=== PATIENT | female | born 1995 | race Caucasian/White ===

== ENCOUNTER 2019-09-11 08:39 | Emergency (ER) | payer OTHER, SELFPAY ==
[2019-09-11 08:41] VITALS: BP 139/84; PULSE 105; RESP 18; TEMP 37; O2SAT 98; BMI 20.2
--- NOTE | 2019-09-11 08:50 | RAD_ITS ---
STUDY: X-RAY CHEST REASON FOR EXAM: Female, 24 years old. FLU X 2 DAYS, COUGH, PAIN TECHNIQUE: PA and lateral views of the chest. COMPARISON: Comparison is made with prior study dated December 16, 2014. FINDINGS: Hyperinflation. The lungs are clear. There is no demonstrated pleural abnormality. Normal size heart. Normal mediastinum and ty. Normal visualized pulmonary arteries. Normal visualized aortic arch and descending thoracic aorta. Normal visualized thoracic spine. Normal visualized ribs, clavicles, and shoulders. There is no demonstrated abnormality of the visualized soft tissue structures of the upper abdomen. RAD/Chest PA and Lateral IMPRESSION: Hyperinflation. Electronically Signed: Pramod Davila, at 10:32 EST , Service support ,
--- NOTE | 2019-09-11 09:10 | ED.DCSUM_ITS ---
- ER Visit Summary Date of Service: 09/11/19 Chief Complaint: [Fever] History of Present Illness: The patient is a 24 F [presents to the emergency department complaint of a fever that started 4 5 days ago. Patient complains of cough and body aches. Patient was seen at urgent care 3 days ago diagnosed with influenza. Patient was started on an inhaler and Tessalon Perles. Patient complains of nausea and decreased p.o. intake. Her cough is mostly nonproductive. She denies any abdominal pain. She has no medical history.] Patient complains of body aches. She complains of a mild headache. She denies any neck pain. Physical Examination: [HEENT-PERRLA, EOMI. Cranial nerves II through XII grossly intact. TMs clear. Mucous membranes moist. No adenopathy. Cardiovascular-regular rate and rhythm without murmur or ectopy Lungs-clear to auscultation, chest wall stable without crepitus or subcu emphysema Abdomen-normoactive bowel sounds, soft, nontender, no rebound or rigidity, no peritoneal signs. Extremities-intact ?4, normal range of motion, normal pulses, atraumatic] Test Results: [CBC with differential obtained showed a depressed white blood cell count 3.1, hemoglobin 13, hematocrit 39, platelets 117. Chemistries were unremarkable. Chest x-ray showed nothing acute.] Emergency Department Course and Treatment: [She was given a liter normal same fluid bolus. Patient given Toradol 30 mg IV. Patient given Zofran 4 mg IV. Patient felt improved.] Treatment Plan: [Continue with her current meds and I will write her prescription for Zofran. To follow-up with her primary care physician 3 to 5 days.] Disposition: [Discharged home in stable condition. Advised to return if increasing shortness of breath or condition should worsen anyway.] Impression: [Influenza] This note was generated with [employer] dictation software. It may contain incorrect words, spelling, and punctuation that were not noted in review of the chart p rior to signing ED Disposition - Plan for ED Patient: Referrals: Brandy Plascencia DO [Primary Care Provider] -
[2019-09-11 09:16] LABS: Absolute Lymphocyte Count 1.28 X10^3/uL (0.83-4.51); Absolute Neutrophil Count 1.5 X10^3/uL (2.0-7.7); Basophil# 0.01 X10^3/uL; Basophil% 0.3 % (0-1); Hematocrit 39.3 % (37-47); Hemoglobin 13.1 g/dL (12.0-15.0); Lymphocyte # 1.28 X10^3/ul (4.0); Mean Corp Hgb Conc 33.3 g/dL (32-36); Mean Corpuscular Volume 89.9 fL (81-99); Mean Platelet Vol. 9.7 fl (6.2-12.0); Monocyte# 0.33 X10^3/uL; Monocyte% 10.6 % (0-10); NRBC Flagged by Analyzer 0 % (0-5); Neutrophil # 1.49 X10^3/uL (2.7-7.7); Neutrophil % 47.8 % (47-70); POSITIVE MORPHOLOGY YES; Platelet Count 117 K/mm3 (150-450); RBC Distribution Width CV 12.3 % (11.6-14.6); Red Blood Count 4.37 M/mm3 (4.2-5.4); White Blood Count 3.1 K/mm3 (4.4-11.0)
[2019-09-11] MEDS: Ondansetron 4 MG/2 ML Vial IV (09:23)
[2019-09-11] MEDS: Ketorolac 30 MG/ML Syringe IV (09:23)
[2019-09-11] MEDS: 0.9% Normal Saline 1,000 ML 1000 ML IV (09:23)
[2019-09-11 09:24] LABS: Differential Indicated SCAN CRITERIA MET
[2019-09-11 09:30] LABS: Anion Gap 7 (5-15); BUN 10 mg/dL (7-18); BUN/Creat Ratio 14.5 RATIO (10-20); Calcium,Total 9.2 mg/dL (8.5-10.1); Chloride 110 mmol/L (98-107); Creatinine, Serum 0.69 mg/dL (0.55-1.02); EST Glomerular Filtration Rate 111 mL/min (>60); Est Glom Filt Rate - Afr Amer 134 mL/min (>60); Estimated Creatinine Clearance 107.14 ml/min; Glucose 104 mg/dL (74-106); Potassium 3.8 mmol/L (3.5-5.1); Sodium Level 140 mmol/L (136-145)
[2019-09-11 10:07] LABS: Reactive Lymphocyte 1+
--- NOTE | 2019-09-11 10:08 | ED.DEP ---
ED Disposition - Plan for ED Patient: Instructions: INFLUENZA (Adult) Prescriptions: Ondansetron [Zofran Odt] 4 mg PO Q8H PRN PRN #10 tab PRN Reason: Nausea Prescription Printed Referrals: Brandy Plascencia DO [Primary Care Provider] - 3-5 Days
[2019-09-11 10:58] VITALS: BP 103/55; PULSE 76; RESP 16; TEMP 37.2; O2SAT 99
== END 2019-09-11 11:08 | disposition home or self-care (01) ==
LOC: ED 08:56
PROVIDERS: Emergency Provider Emergency Medicine; Family Provider Family Medicine; PCP Family Medicine
DX: J11.1 Influenza due to unidentified influenza virus with other respiratory manifestations (principal); Z72.0 Tobacco use
CPT/HCPCS: 71046; 80048; 85025; 96361; 96374; 96375; 99283; J7030; A4216; J2405

== ENCOUNTER 2019-09-18 20:27 | Inpatient (IN) | payer OTHER, SELFPAY ==
[2019-09-18 20:27] VITALS: BP 119/61; PULSE 121; RESP 18; TEMP 37.1; O2SAT 96; BMI 19.0
[2019-09-18] MEDS: Ketorolac 30 MG/ML Syringe IV (21:47)
[2019-09-18] MEDS: 0.9% Normal Saline 1,000 ML 1000 ML IV (21:48)
[2019-09-18 21:53] LABS: Absolute Lymphocyte Count 1.67 X10^3/uL (0.83-4.51); Absolute Neutrophil Count 18.4 X10^3/uL (2.0-7.7); Basophil# 0.03 X10^3/uL; Basophil% 0.1 % (0-1); Eosinophil# 0.01 X10^3/uL; Hematocrit 39.2 % (37-47); Hemoglobin 13.2 g/dL (12.0-15.0); Lymphocyte # 1.67 X10^3/ul (4.0); Lymphocyte % 7.4 % (19-41); Mean Corp Hgb Conc 33.7 g/dL (32-36); Mean Corpuscular Hgb 30.3 pg (27.0-32.0); Mean Corpuscular Volume 89.9 fL (81-99); Mean Platelet Vol. 9.6 fl (6.2-12.0); Monocyte# 2.38 X10^3/uL; Monocyte% 10.5 % (0-10); NRBC Flagged by Analyzer 0 % (0-5); Neutrophil # 18.43 X10^3/uL (2.7-7.7); Neutrophil % 81.2 % (47-70); POSITIVE DIFFERENTIAL YES; Platelet Count 235 K/mm3 (150-450); RBC Distribution Width CV 11.9 % (11.6-14.6); RBC Distribution Width SD 39.2 fl (35.1-43.9); Red Blood Count 4.36 M/mm3 (4.2-5.4); White Blood Count 22.7 K/mm3 (4.4-11.0)
--- NOTE | 2019-09-18 22:00 | RAD_ITS ---
STUDY: X-RAY CHEST REASON FOR EXAM: Female, 24 years old. COUGH WITH FEVER TECHNIQUE: PA and lateral views of the chest. COMPARISON: September 11, 2019 FINDINGS: There is a new left basilar opacity. Normal size heart. Normal mediastinum and ty. Normal visualized pulmonary arteries. Normal visualized aortic arch and descending thoracic aorta. Normal visualized thoracic spine. Normal visualized ribs, clavicles, and shoulders. There is no demonstrated abnormality of the visualized soft tissue structures of the upper abdomen. RAD/Chest PA and Lateral IMPRESSION: New left basilar opacity consistent with underlying pneumonia, involving the lingula and possibly the left lower lobe. Electronically Signed: Judie Dyer MD at 22:15 EST Tel , Service support ,
[2019-09-18 22:12] LABS: Anion Gap 7 (5-15); BUN 15 mg/dL (7-18); Calcium,Total 9.4 mg/dL (8.5-10.1); Chloride 109 mmol/L (98-107); Creatinine, Serum 0.79 mg/dL (0.55-1.02); EST Glomerular Filtration Rate 96 mL/min (>60); Est Glom Filt Rate - Afr Amer 116 mL/min (>60); Estimated Creatinine Clearance 87.71 ml/min; Glucose 103 mg/dL (74-106); Sodium Level 139 mmol/L (136-145)
[2019-09-18 22:16] LABS: Lactic Acid 1.2 mmol/L (0.4-1.9)
[2019-09-18 22:18] LABS: Differential Indicated SCAN CRITERIA MET
[2019-09-18 22:19] LABS: Differential Comment SCANNED
--- NOTE | 2019-09-18 22:40 | ED.VISSUMM ---
- ER Visit Summary Date of Service: 09/18/19 Chief Complaint: [Fever and cough] History of Present Illness: The patient is a 24 F [presents to the emergency department complaint of illness that started more than 10 days ago. Patient was diagnosed with influenza on September 09. Patient states that she improved symptom bonner for a time but today developed fever again as well as body aches and worsening cough. Patient bringing up some green-yellow sputum. She denies any chest pain. Patient has no medical history. Patient has no prior surgical history. Patient allergic to penicillin and sulfa.] Physical Examination: [HEENT-PERRLA, EOMI. Cranial nerves II through XII grossly intact. TMs clear. Mucous membranes moist. No adenopathy. Cardiovascular-regular and tachycardic with heart rate in the 120s. No murmurs auscultated. Lungs-good aeration bilaterally. Patient has some rhonchi and few rales noted in the left base. No significant tachypnea. No accessory muscle use or retractions. Abdomen-normoactive bowel sounds, soft, nontender, no rebound or rigidity, no peritoneal signs. Extremities-intact ?4, normal range of motion, normal pulses, atraumatic] Test Results: [CBC with differential obtained showed an elevated white count of 22.7, hemoglobin 13, hematocrit 39, placed 235. Chemistries unremarkable. Lactate was 1.2. Chest x-ray obtained showed a left lower lobe pneumonia as well as a lingular pneumonia] Emergency Department Course and Treatment: [Patient had blood cultures ordered and was started on Levaquin 750 mg IV.] Treatment Plan: [Plan will be to admit for IV antibiotics.] Disposition: [Admit] Impression: [Post influenza pneumonia Sepsis] This note was generated with [employer] dictation software. It may contain incorrect words, spelling, and punctuation that were not noted in review of the chart prior to signing ED Disposition - Plan for ED Patient: Referrals: Brandy Plascencia DO [Primary Care Provider] -
[2019-09-18] MEDS: levoFLOXacin IV 750 MG/150 ML BAG 100 MG IV (22:45)
--- NOTE | 2019-09-18 23:10 | PCM.HP.STD ---
Problem List (1) Sepsis Status: Acute History of Present Illness Date of Admission: 09/18/19 Chief Complaint: General body ache The patient is a 24 year old F who presented with general body ache. Patient was diagnosed with influenza on 09/09/2019 at a urgent care. She was not given any Tamiflu at that time probably because his symptoms has been going on several days before presentation. She was at emergency department on 09/11/2019 where a chest x-ray was unremarkable and patient was discharged home. Reportedly patient got better but on the day of his presentation she had general body ache for which reason she took Advil. Her temperature at home was 100.1 Fahrenheit. Associated for symptoms is cough productive for sputum. She is unable to tell the color of her sputum because she does not look at it. Further she has chills; rigors and shortness of breath. She has been using her albuterol inhaler which was prescribed for her when she had influenza. Reportedly the albuterol inhaler helped with her shortness of breath. She reports chest pain. At the emergency department patient had tachycardia and her white count was elevated. A chest x-ray showed new infiltrate in her left lower side. Past Medical History Medical History: Medical History (Last Updated 09/19/19 @ 01:03 by Basilio Steve MD) Denies any past medical history Allergies Penicillins Allergy (Verified 09/11/19 08:44) Rash Sulfa (Sulfonamide Antibiotics) Allergy (Verified 09/11/19 08:44) Rash Home Medications: Ambulatory Orders Medication Instructions Recorded Albuterol Inhaler [Ventolin Hfa] 1 - 2 puff IH Q4H PRN PRN 09/19/19 MedroxyPROGESTERone [Depo-Provera] 150 mg IM .[id number] 09/19/19 Surgical History: no surgical history Lives: With Family Smoking Status: Current every day smoker Alcohol: Occasional - *Family History Maternal History Items: Cancer - Hodgkin's lymphoma, - - Porphyria Paternal History Items: Unknown Review of Systems Constitutional: Reports: Anorexia, Chills, Fever - Low-grade. Denies: Weight Change HEENT: Denies: Head Aches, Sinus Congestion, Sinus Drainage Cardiovascular: Reports: Chest Pain. Denies: Palpitations Respiratory: Reports: Cough, Shortness of Breath, Sputum production Gastrointestinal: Denies: Abdominal Pain, Nausea, Vomiting Genitourinary: Denies: Dysuria Musculoskeletal: Reports: Muscle pain. Denies: Joint Pain, Joint Tenderness Skin: Denies: Rash, Wounds Neurological: Denies: Numbness, Tingling, Focal weakness Psychiatric: Denies: Anxiety, Depression, Homicidal Ideations, Suicidal Ideations Hematologic/ Lymphatic: Denies: Easy Bruising, Easy Bleeding VTE Information - Inpt Only VTE Present on Admission: No VTE Mechan Device Prophylaxis: None VTE Pharm Prophylaxis ordered?: No Reason prophylaxis not ordered:: Treatment Not Indicated - Low risk; encourage to ambulate Patient Problems: Active and Suspected Problems (Last Updated 09/19/19 @ 01:03 by Basilio Steve MD) Sepsis (Acute) - Physical Exam Vitals/I&O's: Vital Signs Temp Pulse Resp BP Pulse Ox 98.8 F 121 H 18 119/61 96 09/18/19 20:27 09/18/19 20:27 09/18/19 20:27 09/18/19 20:27 09/18/19 20:27 Oxygen Delivery Method Room Air Weight: 50.167 kg Body Mass Index (BMI) 19.0 Intake and Output for Last 24 Hours 09/16/19 09/17/19 09/18/19 23:59 23:59 23:59 Intake Total 1000 / 1000 Balance 1000 / 1000 General: Alert, Oriented x3, Cooperative HEENT: Atraumatic, PERRLA, EOMI, Normocephalic Neck: Supple, No JVD, Negative Carotid Bruits Lungs: Clear to auscultation, Normal air movement Cardiovascular: Normal S1, Normal S2, No murmurs, Tachycardic Abdomen: Bowel Sounds Present, Soft, Non Tender Extremities: No edema, Capillary Refill Less than 3 Seconds Skin: No rashes, No breakdown Musculoskeletal: No Tenderness to Palpation of Joints or Extremities Neurological: Cranial nerves II-XII grossly intact Psych/Mental Status: Normal Affect, Appropriate Laboratory Results 09/18/19 21:43: WBC 22.7 H, RBC 4.36, Hgb 13.2, Hct 39.2, MCV 89.9, MCH 30.3, MCHC 33.7, RDW Std Deviation 39.2, RDW Coeff of Leah 11.9, Plt Count 235, MPV 9.6, Immature Gran % (Auto) 0.800, Neut % (Auto) 81.2 H, Lymph % (Auto) 7.4 L, [place] % (Auto) 10.5 H, Eos % (Auto) 0.0, Baso % (Auto) 0.1, Absolute Neuts (auto) 18.4 H, Absolute Lymphs (auto) 1.67, Nucleated RBC % 0, Differential Comment SCANNED, Diff Path Review December foll 09/18/19 21:43: Sodium 139, Potassium 4.0, Chloride 109 H, Carbon Dioxide 23.0, Anion Gap 7, BUN 15, Creatinine 0.79, Estim Creat Clear Calc 87.71, Est GFR (MDRD) Af Amer 116, Est GFR (MDRD) Non-Af 96, BUN/Creatinine Ratio 19.0, Glucose 103, Calcium 9.4 09/18/19 21:43: Lactic Acid 1.2 Current Medications Levofloxacin (Levaquin Iv) 750 mg in 150 mls @ 100 mls/hr IV X1 ONE Stop: 09/18/19 23:57 Last Admin: 09/18/19 22:45 Dose: 100 mls/hr Documented by: Assessment/Plan All Active Problems (Last Updated 09/19/19 @ 01:03 by Basilio Steve MD) Sepsis (Acute) The patient is a 24 year old F who presented with general body ache; productive cough; chills; low-grade fever; rigors; chills and and anorexia was found to have tachypnea and leukocytosis as well as radiographic evidence of infiltrate in the left lower lung consistent with sepsis secondary to post influenza pneumonia. Sepsis secondary to post influenza pneumonia. Patient with heart rate of more than 90. White count of 22.7. Chest x-ray with new left basilar opacity consistent with underlying pneumonia involving the lingula and posterior left lower lobe. Chest x-ray was independently reviewed. I agree cardiology interpretation. Blood Culture x2 was ordered emergency department; follow Lactic acid was unremarkable. Get Legionella antigen and strep pneumonia antigen as well as sputum culture. Check MRSA of the nares. Received Levaquin at the emergency department. Of note patient has allergic to penicillin but she does not remember what happened when she took penicillin. Start patient on ceftriaxone and azithromycin. Scheduled DuoNeb and albuterol as needed. Mucinex ordered. Trend CBC and BMP Tobacco abuse Counseled. DVT Prophylaxis Low risk Encourage to ambulate Code Visit Inpatient E&M: 19129 Init Hosp L3
[2019-09-18 23:33] VITALS: BP 111/66; PULSE 95; RESP 15; RESP 16; TEMP 37.3; O2SAT 99
[2019-09-19] VITALS (13 sets, daily range): BP systolic 104–124; BP diastolic 46–66; PULSE 74–119; RESP 12–18; TEMP 37–37.4; O2SAT 97–100; BMI 19.2
[2019-09-19] MEDS: 0.9% Normal Saline 1,000 ML 75 ML IV (00:45)
[2019-09-19 01:54] LABS: M R Staph aureus DNA By PCR Negative (Negative); Probe Check PASS; Specimen Processing Control PASS
[2019-09-19] MEDS: Ketorolac 15 MG/ML Vial IV (04:43)
[2019-09-19] MEDS: 0.9% Saline Lock 10 ML Syringe IV ×2 (04:44→21:28)
[2019-09-19 06:00] LABS: Absolute Lymphocyte Count 1.81 X10^3/uL (0.83-4.51); Absolute Neutrophil Count 15.8 X10^3/uL (2.0-7.7); Basophil# 0.02 X10^3/uL; Basophil% 0.1 % (0-1); Eosinophil# 0.03 X10^3/uL; Eosinophils% 0.2 % (0-5); Hematocrit 34.8 % (37-47); Hemoglobin 11.6 g/dL (12.0-15.0); Lymphocyte # 1.81 X10^3/ul (4.0); Lymphocyte % 9.3 % (19-41); Mean Corp Hgb Conc 33.3 g/dL (32-36); Mean Corpuscular Hgb 30.5 pg (27.0-32.0); Mean Corpuscular Volume 91.6 fL (81-99); Monocyte# 1.62 X10^3/uL; Monocyte% 8.3 % (0-10); NRBC Flagged by Analyzer 0 % (0-5); Neutrophil # 15.82 X10^3/uL (2.7-7.7); Neutrophil % 81.2 % (47-70); POSITIVE DIFFERENTIAL YES; Platelet Count 232 K/mm3 (150-450); RBC Distribution Width CV 11.9 % (11.6-14.6); RBC Distribution Width SD 39.8 fl (35.1-43.9); White Blood Count 19.5 K/mm3 (4.4-11.0)
[2019-09-19 06:08] LABS: Differential Indicated SCAN CRITERIA MET
[2019-09-19 06:24] LABS: Differential Comment SCANNED
[2019-09-19 06:43] LABS: Anion Gap 7 (5-15); BUN 10 mg/dL (7-18); BUN/Creat Ratio 16.4 RATIO (10-20); Calcium,Total 8.5 mg/dL (8.5-10.1); Chloride 112 mmol/L (98-107); Creatinine, Serum 0.61 mg/dL (0.55-1.02); EST Glomerular Filtration Rate 128 mL/min (>60); Est Glom Filt Rate - Afr Amer 155 mL/min (>60); Estimated Creatinine Clearance 115.03 ml/min; Glucose 97 mg/dL (74-106); Potassium 3.9 mmol/L (3.5-5.1); Sodium Level 140 mmol/L (136-145)
[2019-09-19] MEDS: Ipratropium/Albuterol Sulfate 3 ML AMPUL.NEB INHALATION ×4 (07:40→19:15)
--- NOTE | 2019-09-19 08:46 | NURSING ---
pt aware of need for sputum. cup at bedside. unable to provide at this time
[2019-09-19] MEDS: guaiFENesin 1,200 MG Tablet 1200 MG PO ×2 (08:50→21:39)
--- NOTE | 2019-09-19 10:50 | CASEMGMT ---
RN ABEBA Face to Face with patient for initial transition planning/care coordination assessment. RN CM introduced self and role at [facility]. Patient lying in bed, alert and oriented. Patient willing to participate in assessment and is able to answer all questions appropriately. Care providers, pharmacy, and demographics verified. Patient wishes to discharge home, denies need for home health at this time. Patient states she has no further needs or concerns at this time. CM to follow for discharge planning needs that may arise. PCP: Thais Specialists: none [facility]erred [facility]acy[facility] Insurance: MMO Prescription Benefit: yes Living Will/HPOA: none LNOK: mother Living Arrangements: Patient lives with mother in house. Patient independent at home. Transportation: self/mother DME/HHC: Patient denies DME or HHC. Disposition Plan: Patient to discharge home with family support and follow-up plans in place. Wendy MOSES, RN, CM
--- NOTE | 2019-09-19 13:16 | PCM.PN.HOSP ---
Patient Problems: Active and Suspected Problems (Last Updated 09/19/19 @ 01:03 by Basilio Steve MD) Sepsis (Acute) Reason for Visit: Follow-up on pneumonia Subjective: Patient was seen and examined. She feels very fatigued. Denied any fever and chills. Complains of pain in the left side of the chest. Objective: Physical exam: General: Alert, Oriented x3, Cooperative, looks fatigued HEENT: Atraumatic, PERRLA, EOMI, Normocephalic Neck: Supple, No JVD, Negative Carotid Bruits Lungs: Clear to auscultation, Normal air movement Cardiovascular: Normal S1, Normal S2, No murmurs, Tachycardic Abdomen: Bowel Sounds Present, Soft, Non Tender Extremities: No edema, Capillary Refill Less than 3 Seconds Skin: No rashes, No breakdown Musculoskeletal: No Tenderness to Palpation of Joints or Extremities Neurological: Cranial nerves II-XII grossly intact Psych/Mental Status: Normal Affect, Appropriate Vitals/I&O's: Vital Signs Temp Pulse Resp BP Pulse Ox 99 F 97 18 104/46 L 97 09/19/19 08:45 09/19/19 11:19 09/19/19 11:19 09/19/19 08:45 09/19/19 08:45 Oxygen Delivery Method Room Air Weight: 50.8 kg Body Mass Index (BMI) 19.2 Intake and Output for Last 24 Hours 09/17/19 09/18/19 09/19/19 23:59 23:59 23:59 Intake Total 1000 / 1000 1175.0 / 1175.0 Output Total 450 / 450 Balance 1000 / 1000 725.0 / 725.0 Microbiology Past 72 Hours 09/19/19 11:04 Sputum, Expectorated/Coughed Gram Stain - Final 09/19/19 01:20 Urine, Clean Catch Legionella Antigen - Final 09/19/19 01:20 Urine, Clean Catch Streptococcus pneumoniae Antigen (M - Final Laboratory Results 09/18/19 21:43: WBC 22.7 H, RBC 4.36, Hgb 13.2, Hct 39.2, MCV 89.9, MCH 30.3, MCHC 33.7, RDW Std Deviation 39.2, RDW Coeff of Leah 11.9, Plt Count 235, MPV 9.6, Immature Gran % (Auto) 0.800, Neut % (Auto) 81.2 H, Lymph % (Auto) 7.4 L, [place] % (Auto) 10.5 H, Eos % (Auto) 0.0, Baso % (Auto) 0.1, Absolute Neuts (auto) 18.4 H, Absolute Lymphs (auto) 1.67, Nucleated RBC % 0, Differential Comment SCANNED, Diff Path Review December [facility] 09/18/19 21:43: Sodium 139, Potassium 4.0, Chloride 109 H, Carbon Dioxide 23.0, Anion Gap 7, BUN 15, Creatinine 0.79, Estim Creat Clear Calc 87.71, Est GFR (MDRD) Af Amer 116, Est GFR (MDRD) Non-Af 96, BUN/Creatinine Ratio 19.0, Glucose 103, Calcium 9.4 09/18/19 21:43: Lactic Acid 1.2 09/19/19 00:25: MRSA (PCR) Negative 09/19/19 05:40: WBC 19.5 H, RBC 3.80 L, Hgb 11.6 L, Hct 34.8 L, MCV 91.6, MCH 30.5, MCHC 33.3, RDW Std Deviation 39.8, RDW Coeff of Leah 11.9, Plt Count 232, MPV 10.0, Immature Gran % (Auto) 0.900, Neut % (Auto) 81.2 H, Lymph % (Auto) 9.3 L, [place] % (Auto) 8.3, Eos % (Auto) 0.2, Baso % (Auto) 0.1, Absolute Neuts (auto) 15.8 H, Absolute Lymphs (auto) 1.81, Nucleated RBC % 0, Differential Comment SCANNED, Diff Path Review December [facility] 09/19/19 05:40: Sodium 140, Potassium 3.9, Chloride 112 H, Carbon Dioxide 21.0, Anion Gap 7, BUN 10, Creatinine 0.61, Estim Creat Clear Calc 115.03, Est GFR (MDRD) Af Amer 155, Est GFR (MDRD) Non-Af 128, BUN/Creatinine Ratio 16.4, Glucose 97, Calcium 8.5 Current Medications Acetaminophen (Tylenol) 650 mg PO Q6H PRN PRN PRN Reason: Pain Score 1-10/Temp > 100.7 F Albuterol Sulfate (Ventolin Aerosols) 2.5 mg INHALATION Q2H PRN PRN PRN Reason: Shortness of Breath/Wheezing Albuterol/Ipratropium (Duoneb) 3 ml INHALATION Q4HWA.RT [facility] Last Admin: 09/19/19 11:19 Dose: 3 ml Documented by: Benzonatate (Tessalon Perle) 100 mg PO TID PRN PRN PRN Reason: COUGH Glucagon () 1 mg IM .X1 PRN PRN Reason: Hypoglycemia Guaifenesin (Mucinex) 1,200 mg PO BID [facility] Last Admin: 09/19/19 08:50 Dose: 1,200 mg Documented by: Sodium Chloride () 1,000 mls @ 75 mls/hr IV .[id number] [facility] Stop: 09/19/19 13:29 Last Infusion: 09/19/19 02:34 Dose: 75 mls/hr Documented by: Ceftriaxone Sodium 2 gm/ (Sodium Chloride) 50 mls @ 100 mls/hr IV QHS [facility] Last Infusion: 09/19/19 01:17 Dose: Infused Documented by: Azithromycin 500 mg/ Dextrose 255 mls @ 250 mls/hr IV QHS [facility] Last Infusion: 09/19/19 02:34 Dose: Infused Documented by: Dextrose (Dextrose 10%-Water) 250 mls @ 999 mls/hr IV .Q16M PRN; Protocol PRN Reason: HYPOGLYCEMIA Sodium Chloride () 250 mls @ 15 mls/hr IV .[id number] PRN PRN Reason: Saline Flush Ketorolac Tromethamine (Toradol) 15 mg IV Q6H PRN PRN PRN Reason: pain 6-10 Stop: 09/24/19 03:01 Last Admin: 09/19/19 04:43 Dose: 15 mg Documented by: Nutritional Formula (Lactose Free) (Ensure Enlive) 120 ml PO 4X/DAY [facility] Last Admin: 09/19/19 08:53 Dose: 120 ml Documented by: Ondansetron HCl (Zofran) 4 mg IV Q8H PRN PRN PRN Reason: NAUSEA/VOMITING Sodium Chloride () 10 - 40 ml IV UD PRN PRN Reason: SALINE FLUSH Last Admin: 09/19/19 04:44 Dose: 10 ml Documented by: STROKE Vital Signs/Narrative: Vital Signs Pulse Resp 09/19/19 11:19 97 18 09/19/19 10:00 106 H Medical Necessity - Tobacco Use Smoking Status: Current every day smoker Assessment/Plan All Active Problems (Last Updated 09/19/19 @ 01:03 by Basilio Steve MD) Sepsis (Acute) 1. Sepsis secondary to pneumonia, s/p recent influenza, remains minimally improved MRSA PCR is negative, WBC count is 19.5, down from 12.7 We will continue on IV ceftriaxone and azithromycin(day 2) 2. Nicotine dependence, counseled to quit 3. DVT PPx- low risk; encourage early ambulation Code Visit Inpatient E&M: 29734 Subs Hosp L2
[2019-09-19] MEDS: Benzonatate 100 MG Capsule PO (13:54)
[2019-09-19] MEDS: Acetaminophen 325 MG Tablet 650 MG PO (13:54)
[2019-09-19] MEDS: Ondansetron 4 MG/2 ML Vial IV (21:28)
[2019-09-20] VITALS (7 sets, daily range): BP systolic 104–119; BP diastolic 55–60; PULSE 69–89; RESP 16–18; TEMP 36.8–37.1; O2SAT 93–100
[2019-09-20] MEDS: Benzonatate 100 MG Capsule PO (03:35)
[2019-09-20] MEDS: Ipratropium/Albuterol Sulfate 3 ML AMPUL.NEB INHALATION ×3 (06:42→15:42)
[2019-09-20 09:02] LABS: Pathologist Review Reviewed
[2019-09-20 09:02] LABS: Pathologist Review Reviewed
[2019-09-20] MEDS: guaiFENesin 1,200 MG Tablet 1200 MG PO (10:10)
[2019-09-20] MEDS: Acetaminophen 325 MG Tablet 650 MG PO (10:13)
--- NOTE | 2019-09-20 11:23 | DCINST_ITS ---
- Discharge Diagnoses Current Active Problems: Current Active and Chronic Problems (Last Updated 09/19/19 @ 01:03 by Basilio Steve MD) Sepsis (Acute) Reason(s) for Visit for Discharge Instructions: Chest pain, pneumonia You will use the following diet at home:: Regular Your food should be the consistency of: Regular Your liquids should be the consistency of: Regular/Thin Discharge Activity: Return to Normal Activity Additional Instructions: Complete your antibiotics. Continue to keep yourself hydrated. Encourage use of incentive spirometer. Rest a lot and eat well. Follow-up with your primary care doctor within 1-2 weeks for repeat blood work Allergies/Adverse Reactions: Allergies Penicillins Allergy (Verified 09/11/19 08:44) Rash Sulfa (Sulfonamide Antibiotics) Allergy (Verified 09/11/19 08:44) Rash Medications to take at Discharge Albuterol Inhaler [Ventolin Hfa] 1 - 2 puff IH Q4H PRN PRN 09/19/19 MedroxyPROGESTERone [Depo-Provera] 150 mg IM .[id number] 09/19/19 Acetaminophen [Tylenol Tablet] 650 mg PO Q6H PRN PRN tab 09/20/19 Amox/Clavulanate Tablet [Augmentin Tablet] 875 mg PO Q12H 6 Days #10 tab 09/20/19 Benzonatate [Tessalon Perle] 100 mg PO TID PRN PRN #20 cap 09/20/19 Ensure Enlive 120 ml PO 4X/DAY #60 liquid 09/20/19 Guaifenesin [Mucinex] 1,200 mg PO BID #20 tab 09/20/19 The following prescriptions were given: Amox/Clavulanate Tablet [Augmentin Tablet] 875 mg PO Q12H 6 Days #10 tab Transmission Status: [id number] Ensure Enlive 120 ml PO 4X/DAY #60 liquid Transmission Status: Received by [id number] Guaifenesin [Mucinex] 1,200 mg PO BID #20 tab Transmission Status: Re[facility] by [id number] Benzonatate [Tessalon Perle] 100 mg PO TID PRN PRN #20 cap PRN Reason: COUGH Transmission Status: [facility] by [id number] Primary Care Physician: Brandy Plascencia DO [Primary Care Provider] - Please follow up with your Primary Care Physician in: within 1-2 weeks Test Results: Test results from this visit will be discussed in further detail at your follow- up appointment, if applicable. Proposed Discharge Date: 09/20/19
--- NOTE | 2019-09-20 11:26 | DS.PCM_ITS ---
Discharge Date and Diagnosis - Problem List Patient Problems: Active and Suspected Problems (Last Updated 09/19/19 @ 01:03 by Basilio Steve MD) Sepsis (Acute) Date of Admission: 09/18/19 Date of Discharge: 09/20/19 - Primary Discharge Diagnosis Active and Suspected Problems (Last Updated 09/19/19 @ 01:03 by Basilio Steve MD) Sepsis (Acute) Pneumonia Nicotine dependence Hospital Course and Treatment Imaging Results: Clinical Impression(s) from Imaging Studies Chest X-Ray 09/18/19 22:00 IMPRESSION: New left basilar opacity consistent with underlying pneumonia, involving the lingula and possibly the left lower lobe. Electronically Signed: Judie Dyer MD at 22:15 EST Tel , Service support , None Operations: None Procedures: None Summary of Care Provided: The patient is a 24 year old F with past medical history of nicotine dependence, recently diagnosed with influenza but not on Tamiflu who comes in with progressive shortness of breath and cough as well as generalized body aches. Patient had reported some subjective fever of 100.1 at home as well productive cough. Her x-ray shows a left-sided infiltrate. She was admitted to the [facility] floor and started on IV ceftriaxone and azithromycin. She was also managed as sepsis secondary to pneumonia. She also received IV fluids. Urine for Legionella and streptococcal antigen were negative. Patient continued to improve and was discharged on Augmentin to complete 1 week total antibiotic duration. Encouraged to use her incentive spirometer. She knows to follow-up with her primary care doctor within 1 to 2 weeks. Her blood cultures were pending as well as sputum cultures and will follow-up with him primary care doctor for results. She was advised to quit smoking. Patient Problems: Active and Suspected Problems (Last Updated 09/19/19 @ 01:03 by Basilio Steve MD) Sepsis (Acute) Subjective: On the day of discharge, patient was seen and examined. She denied any new complaint. Still has left-sided chest pain. No fevers or chills. Objective: Physical exam: General: Alert, Oriented x3, Cooperative, looks fatigued HEENT: Atraumatic, PERRLA, EOMI, Normocephalic Neck: Supple, No JVD, Negative Carotid Bruits Lungs: Clear to auscultation, Normal air movement Cardiovascular: Normal S1, Normal S2, No murmurs, Tachycardic Abdomen: Bowel Sounds Present, Soft, Non Tender Extremities: No edema, Capillary Refill Less than 3 Seconds Skin: No rashes, No breakdown Musculoskeletal: No Tenderness to Palpation of Joints or Extremities Neurological: Cranial nerves II-XII grossly intact Psych/Mental Status: Normal Affect, Appropriate - Physical Exam Vitals/I&O's: Vital Signs Temp Pulse Resp BP Pulse Ox 98.2 F 86 18 104/55 L 98 09/20/19 10:08 09/20/19 10:40 09/20/19 10:40 09/20/19 10:08 09/20/19 10:08 Oxygen Delivery Method Room Air Weight: 50.8 kg Body Mass Index (BMI) 19.2 Intake and Output for Last 24 Hours 09/18/19 09/19/19 09/20/19 23:59 23:59 23:59 Intake Total 1000 / 1000 2760.0 / 3160.0 800 / 800 Output Total 450 / 1450 1999 / 1999 Balance 1000 / 1000 2310.0 / 1710.0 -1200 / -1200 Microbiology Past 72 Hours 09/19/19 11:04 Sputum, Expectorated/Coughed Gram Stain - Final 09/19/19 01:20 Urine, Clean Catch Legionella Antigen - Final 09/19/19 01:20 Urine, Clean Catch Streptococcus pneumoniae Antigen (M - Final Laboratory Results 09/18/19 21:43: Diff Path Review Reviewed 09/19/19 05:40: Diff Path Review Reviewed Current Medications Acetaminophen (Tylenol) 650 mg PO Q6H PRN PRN PRN Reason: Pain Score 1-10/Temp > 100.7 F Last Admin: 09/20/19 10:13 Dose: 650 mg Documented by: Albuterol Sulfate (Ventolin Aerosols) 2.5 mg INHALATION Q2H PRN PRN PRN Reason: Shortness of Breath/Wheezing Albuterol/Ipratropium (Duoneb) 3 ml INHALATION Q4HWA.RT PIERO Last Admin: 09/20/19 10:39 Dose: 3 ml Documented by: Benzonatate (Tessalon Perle) 100 mg PO TID PRN PRN PRN Reason: COUGH Last Admin: 09/20/19 03:35 Dose: 100 mg Documented by: Glucagon () 1 mg IM .X1 PRN PRN Reason: Hypoglycemia Guaifenesin (Mucinex) 1,200 mg PO BID [facility] Last Admin: 09/20/19 10:10 Dose: 1,200 mg Documented by: Ceftriaxone Sodium 2 gm/ (Sodium Chloride) 50 mls @ 100 mls/hr IV QHS [facility] Last Infusion: 09/19/19 22:01 Dose: Infused Documented by: Azithromycin 500 mg/ Dextrose 255 mls @ 250 mls/hr IV QHS [facility] Last Infusion: 09/19/19 23:23 Dose: Infused Documented by: Dextrose (Dextrose 10%-Water) 250 mls @ 999 mls/hr IV .Q16M PRN; Protocol PRN Reason: HYPOGLYCEMIA Sodium Chloride () 250 mls @ 15 mls/hr IV .[id number] PRN PRN Reason: Saline Flush Ketorolac Tromethamine (Toradol) 15 mg IV Q6H PRN PRN PRN Reason: pain 6-10 Stop: 09/24/19 03:01 Last Admin: 09/19/19 04:43 Dose: 15 mg Documented by: Nutritional Formula (Lactose Free) (Ensure Enlive) 120 ml PO 4X/DAY [facility] Last Admin: 09/20/19 10:09 Dose: 120 ml Documented by: Ondansetron HCl (Zofran) 4 mg IV Q8H PRN PRN PRN Reason: NAUSEA/VOMITING Last Admin: 09/19/19 21:28 Dose: 4 mg Documented by: Sodium Chloride () 10 - 40 ml IV UD PRN PRN Reason: SALINE FLUSH Last Admin: 09/19/19 21:28 Dose: 10 ml Documented by: Discharge Diet: No Restrictions Discharge Activity: Return to Normal Activity Home Medications: Medications to take at Discharge Albuterol Inhaler [Ventolin Hfa] 1 - 2 puff IH Q4H PRN PRN 09/19/19 MedroxyPROGESTERone [Depo-Provera] 150 mg IM .[id number] 09/19/19 Acetaminophen [Tylenol Tablet] 650 mg PO Q6H PRN PRN tab 09/20/19 Amox/Clavulanate Tablet [Augmentin Tablet] 875 mg PO Q12H 6 Days #10 tab 09/20/19 Benzonatate [Tessalon Perle] 100 mg PO TID PRN PRN #20 cap 09/20/19 Ensure Enlive 120 ml PO 4X/DAY #60 liquid 09/20/19 Guaifenesin [Mucinex] 1,200 mg PO BID #20 tab 09/20/19 Following Prescrptions Were Given to Patient: Amox/Clavulanate Tablet [Augmentin Tablet] 875 mg PO Q12H 6 Days #10 tab Transmission Status: Received by [id number] Ensure Enlive 120 ml PO 4X/DAY #60 liquid Transmission Status: Received by [id number] Guaifenesin [Mucinex] 1,200 mg PO BID #20 tab Transmission Status: Received by [id number] Benzonatate [Tessalon Perle] 100 mg PO TID PRN PRN #20 cap PRN Reason: COUGH Transmission Status: Received by [id number] Primary Care Physician: Brandy Plascencia DO [Primary Care Provider] - Please follow up with your Primary Care Physician in: within 1-2 weeks Disposition: Home Minutes spent on discharge:: 42 Patient Condition:: Stable Medical Necessity - Tobacco Use Smoking Status: Current every day smoker Tobacco Use: Cigarettes Meaningful Use Info Meaningful Use Diagnoses (Choose all that apply): None applicable Code Visit Inpatient E&M: 43707 Disch Hosp
== END 2019-09-20 15:57 | disposition home or self-care (01) | DRG 871 ==
LOC: ED 21:14 → MS3 09-19 07:04
PROVIDERS: Admitting Provider Hospitalist; Emergency Provider Emergency Medicine; PCP Family Medicine; Referring Provider Hospitalist; Visit Provider Internal Medicine
DX: A41.9 Sepsis, unspecified organism (principal); J18.9 Pneumonia, unspecified organism; F17.210 Nicotine dependence, cigarettes, uncomplicated
CPT/HCPCS: 36415; 71046; 80048; 83605; 85025; 87040; 87070; 87186; 87205; 87449; 87641; 94640; 97802; 99251; 99284; 99406; J7030; J7040; A4216; G0463; J0696; J2405

== ENCOUNTER → 2020-07-31 13:12 | Outpatient (CLI) | payer OTHER, SELFPAY ==
[2019-09-19 00:21] VITALS: BMI 19.2
== END ==
PROVIDERS: PCP Family Medicine; Visit Provider Family Medicine
DX: B34.9 Viral infection, unspecified (principal)
CPT/HCPCS: 87633; 87635; U0003

== ENCOUNTER 2021-05-28 17:48 | Emergency (ER) | payer OTHER, SELFPAY ==
[2021-05-28 17:48] VITALS: BP 151/99; PULSE 102; RESP 16; TEMP 36.9; O2SAT 100; BMI 23.8
--- NOTE | 2021-05-28 18:03 | RAD_ITS ---
STUDY: X-RAY CHEST REASON FOR EXAM: Female, 26 years old patient with cough. TECHNIQUE: Single AP portable view of the chest. COMPARISON: Chest radiograph dated 09/18/2019. FINDINGS: The lungs are clear and hyperexpanded. There is no demonstrated pleural abnormality. Normal size heart. Normal mediastinum and ty. Normal visualized pulmonary arteries. Normal visualized aortic arch and descending thoracic aorta. Normal visualized thoracic spine. Normal visualized ribs, clavicles, and shoulders. There is no demonstrated abnormality of the visualized soft tissue structures of the upper abdomen. RAD/Chest 1 View (Portable) IMPRESSION: No radiographic evidence of acute cardiopulmonary disease. Electronically Signed: Amina Jane MD at 19:58 EDT , Service support ,
--- NOTE | 2021-05-28 18:04 | EX.ED.DYSGE1 ---
HPI History of Present Illness Chief Complaint: General Illness Informant: patient and parent Narrative Narrative: 26-year-old female presents the emergency department stating that she does not feel well. Patient states that last evening she began to feel ill. She has had cough headaches body aches low-grade temperatures nausea and fatigue. She states that she went to urgent care and had a negative strep test and a negative Covid rapid. She states that it they did not do anything for me and I still feel bad. She would like to be checked for pneumonia because she feels like she did 2 years ago when she had pneumonia. [facility] Medical History (Updated 05/28/21 @ 19:[address] Aron Strickland DO) Denies any past medical history Home Medications medroxyprogesterone 150 mg IM .[id number] 09/19/19 [History Last Taken 08/24/19 150 mg] Allergy/AdvReac Type Severity Reaction Status Date / Time kiwi Allergy Swelling Verified 05/28/21 17:51 Penicillins Allergy Rash Verified 05/28/21 17:51 Sulfa (Sulfonamide Allergy Rash Verified 05/28/21 17:51 Antibiotics) Surgical History (Updated 05/28/21 @ 18:09 by Danielito Brown) History of placement of ear tubes Social History (Updated 05/28/21 @ 18:[address] Aron Strickland, ) Smoking Status: Current every day smoker tobacco type: cigarettes substance use type: does not use ROS ROS ED ROS Narrative Fatigue Constitutional Constitutional ED: Reports chills and fever(s); Denies weight loss Eyes Eyes: Denies change in vision or diplopia ENT ENT ED: Reports sore throat; Denies ear pain or rhinorrhea Cardiovascular Cardiovascular: Denies chest pain, orthopnea, palpitations or racing heartbeat Respiratory/Chest Respiratory/Chest: Reports cough, dyspnea and sputum; Denies orthopnea Gastrointestinal Gastrointestinal: Reports nausea; Denies abdominal pain, diarrhea or vomiting Genitourinary Genitourinary ED: Denies dysuria, hematuria or urinary frequency Musculoskeletal Musculoskeletal: Reports myalgias; Denies arthralgias Integumentary Denies abscess or rash Neurologic Neurologic: Reports headache(s); Denies weakness Psychiatric Psychiatric: Denies anxiety, depression, suicidal ideation or suicidal thoughts Endocrine Endocrinology: Denies polydipsia, polyphagia or polyuria Allergic/Immunologic Allergic/Immunologic ED: Denies mouth swelling, tongue swelling or urticaria EXAM Physical Exam Const Vital Signs: 05/28/21 17:48 05/28/21 18:09 05/28/21 18:10 Temperature 98.4 F Temperature Source Temporal Pulse Rate 102 H Respiratory Rate 16 20 H Respiratory Effort Normal Non-Labored Respiratory Depth Normal Respiratory Pattern Normal Blood Pressure 151/99 H Blood Pressure Mean 116 Pulse Ox 100 Oxygen Delivery Method Room Air Room Air Positive well nourished and well developed General Appearance ED: well developed HEENT Reports normocephalic, head/scalp atraumatic and moist mucous membranes Eyes PERRL and EOMs intact bilaterally Neck no lymphadenopathy, supple and no JVD Resp normal respiratory effort and clear to auscultation bilaterally Cardio regular rate, regular rhythm and no murmurs GI normal to inspection, nondistended, normoactive bowel sounds and non-tender Palpation: soft Back/Spine no CVA tenderness and normal ROM Extremity normal to inspection General Extremety ED: Negative for edema General Extremity: Negative for edema Neuro oriented x3 and CN's II-XII intact bilaterally Sensorium / Orientation: alert Motor Exam: strength 5/5 throughout Psych mental status grossly normal Mood & Affect: Negative for depressed or tearful Skin no rashes or lesions noted and no wounds MDM MDM MDM Narrative Medical decision making narrative: My interpretation of the chest x-ray is no acute process. Influenza rapid was obtained and negative. Covid PCR will be sent. Patient essentially has reassuring vital signs. I think she can be discharged home with supportive care. Radiography Diagnostic Testing: Radiology Impression Chest X-Ray 05/28/21 18:03 IMPRESSION: No radiographic evidence of acute cardiopulmonary disease. Electronically Signed: Amina Jane MD at 19:58 EDT , Service support , Discharge Plan Triage Chief Complaint: General Illness ED Provider: Aron Strickland Dx/Rx/DC Orders Clinical Impression: Viral syndrome Instructions: ED Viral Syndrome (Adult) Prescriptions: No Action medroxyprogesterone 150 MG/ML syringe 150 mg IM .[id number] RF: 0 Primary Care Provider: Care Physician,No Primary Referrals: Nadira Bond MD [STAFF PHYSICIAN] - As Needed (for primary care) Care Physician,No Primary [Primary Care Provider] - Disposition Disposition: Home, Self Care
[2021-05-28 18:09] VITALS: RESP 20
[2021-05-28 20:39] VITALS: BP 120/70; PULSE 80; RESP 20; O2SAT 98
[2021-05-28 20:50] LABS: Probe Check PASS; Specimen Processing Control PASS
== END 2021-05-28 20:40 | disposition home or self-care (01) ==
PROVIDERS: Emergency Provider Emergency Medicine
DX: B34.9 Viral infection, unspecified (principal); F17.210 Nicotine dependence, cigarettes, uncomplicated; Z79.3 Long term (current) use of hormonal contraceptives
CPT/HCPCS: 71045; 87635; 87804; 99282; U0005; U0003

== ENCOUNTER 2021-06-25 17:02 | Emergency (ER) | payer OTHER, SELFPAY ==
[2021-06-25 17:03] VITALS: BP 126/86; PULSE 86; RESP 16; TEMP 36.3; O2SAT 99; BMI 24.1
--- NOTE | 2021-06-25 17:20 | EDS_ITS ---
HPI HPI - GI History of Present Illness Chief Complaint: Abd Pain Narrative Narrative: 26-year-old female presenting with abdominal pain. She states that 2 days ago it started in the left upper quadrant and now is in the right lower quadrant and left lower quadrant. When this started it woke her up from sleep. She describes the pain as sharp. Patient states she had a temperature of 100 yesterday which has not returned. She has nausea currently. She states she vomited yesterday. This has not returned. She does admit to multiple episodes of diarrhea today. She denies dysuria or hematuria. She states she does not believe she could be . [facility] Medical History Denies any past medical history Medical History no medical history Home Medications medroxyprogesterone 150 mg IM .[id number] 09/19/19 [History Last Taken 08/24/19 150 mg] Allergy/AdvReac Type Severity Reaction Status Date / Time kiwi Allergy Swelling Verified 06/25/21 17:02 Penicillins Allergy Rash Verified 06/25/21 17:02 Sulfa (Sulfonamide Allergy Rash Verified 06/25/21 17:02 Antibiotics) Surgical History History of placement of ear tubes Social History Smoking Status: Current every day smoker tobacco type: cigarettes substance use type: does not use ROS ROS ED Constitutional Constitutional ED: Reports subjective; Denies chills or sweats ENT ENT ED: Denies rhinorrhea or sore throat Cardiovascular Cardiovascular: Denies chest pain or palpitations Respiratory/Chest Respiratory/Chest: Denies cough, dyspnea or sputum Gastrointestinal Gastrointestinal: Reports abdominal pain, diarrhea, nausea and vomiting Genitourinary Genitourinary ED: Denies dysuria or hematuria Musculoskeletal Musculoskeletal: Denies arthralgias or myalgias Integumentary Denies Abrasions or rash Neurologic Neurologic: Denies headache(s) or paresthesias EXAM Physical Exam Const Vital Signs: 06/25/21 17:03 06/25/21 20:04 06/25/21 22:00 Temperature 97.3 F L Temperature Source Temporal Pulse Rate 86 75 71 Respiratory Rate 16 18 18 Blood Pressure 126/86 H 121/86 H 118/71 Blood Pressure Mean 99 97 86 Pulse Ox 99 100 99 Oxygen Delivery Method Room Air Positive well nourished General Appearance ED: NAD; Negative for pallor HEENT Reports moist mucous membranes normocephalic and atraumatic Eyes PERRL and EOMs intact bilaterally General Eye ED: Negative for pale conjunctiva or scleral icterus Resp normal respiratory effort and clear to auscultation bilaterally Cardio regular rate and regular rhythm GI non-distended Palpation: soft and tender RLQ and LUQ Back/Spine no CVA tenderness Neuro Sensorium / Orientation: alert, oriented to person, oriented to place and oriented to time Psych mental status grossly normal Skin General Skin Exam: Negative for jaundice or pallor MDM MDM MDM Narrative Medical decision making narrative: Patient presenting with abdominal pain. She describes as starting in the left upper quadrant and radiating to the right lower quadrant. She had some diarrhea but no fever or vomiting. She does admit to some mild nausea. I did obtain blood work and her CBC and CMP are completely normal. Her lipase is also normal. Urinalysis is negative for infection. I did obtain a CT of the abdomen pelvis with IV contrast which showed a moderate amount of free fluid in the pelvis as well as questionable myometrial edema. I had a long discussion with the patient that likely this is not emergent based on her normal lab work and questionably reading on CT. I did offer her transvaginal ultrasound and she did accept. This will be performed and I will reevaluate her. On reevaluation the patient states that she has a migraine headache. She believes close by morphine. She is given Reglan and Benadryl. I did review the ultrasound with her and it showed fluid in the lower endometrial cavity and cervical canal as well as a small left ovarian cyst, and moderate pelvic fluid. For this I believe she can take Tylenol and ibuprofen at home. After headache resolves I will discharge her home she can follow-up with her network planner outpatient as needed. Impression: 1. Ovarian cyst 2. Abdominal pain 3. Migraine Lab Data Attestation: I reviewed the patient's lab results. Labs: Laboratory Results - last 24 hr 06/25/21 06/25/21 06/25/21 17:15 17:15 17:36 WBC 5.5 RBC 4.35 Hgb 13.6 Hct 40.3 MCV 92.6 MCH 31.3 MCHC 33.7 RDW Std Deviation 40.9 RDW Coeff of Leah 12.0 Plt Count 189 MPV 9.6 Immature Gran % (Auto) 0.400 Neut % (Auto) 56.6 Lymph % (Auto) 28.8 [place] % (Auto) 11.2 H Eos % (Auto) 2.6 Baso % (Auto) 0.4 Absolute Neuts (auto) 3.1 Absolute Lymphs (auto) 1.57 Nucleated RBC % 0 Sodium 141 Potassium 3.8 Chloride 110 H Carbon Dioxide 27.0 Anion Gap 4 L BUN 14 Creatinine 0.81 Estim Creat Clear Calc 91.68 Est GFR (MDRD) Af Amer 111 Est GFR (MDRD) Non-Af 92 BUN/Creatinine Ratio 17.4 Glucose 98 Calcium 9.2 Total Bilirubin 0.20 AST 15 ALT 27 Alkaline Phosphatase 44 L Total Protein 7.3 Albumin 3.7 Globulin 3.6 Albumin/Globulin Ratio 1.0 Lipase 60 L Urine Color Yellow Urine Clarity Clear Urine pH 6.0 Ur Specific [place] 1.025 Urine Protein Negative Urine Glucose (UA) Normal Urine Ketones Negative Urine Occult Blood 10 H Urine Nitrite Negative Urine Bilirubin Negative Urine Urobilinogen Normal Ur Leukocyte Esterase Negative Urine RBC 0 SEEN Urine WBC 0-5 SEEN Ur Squamous Epith Cells 5-10 SEEN Urine Bacteria 2+ Urine Mucus 0 SEEN Urine Test Negative Radiography Diagnostic Testing: Clinical Impression(s) from Imaging Studies Abdomen/Pelvis CT 06/25/21 17:20 IMPRESSION: Small bowel ileus. No sign of bowel obstruction. Moderate pelvic fluid. Questionable myometrial edema. Correlate with pelvic ultrasound if needed. Small fatty umbilical hernia. Electronically Signed: Juventino Geiger DO at 19:56 EDT Tel [phone], Service support , Transvaginal US 06/25/21 20:12 IMPRESSION: Possible arcuate uterus. There is fluid in the lower endometrial cavity and cervical canal. Small left ovarian cyst. Moderate pelvic fluid. Electronically Signed: Juventino Geiger DO at 22:15 EDT Tel [phone], Service support , Discharge Plan Triage Chief Complaint: Abd Pain ED Provider: Cleveland Cummings Dx/Rx/DC Orders Instructions: Ovarian Cysts, ED, Migraine (Classical) Prescriptions: No Action medroxyprogesterone 150 MG/ML syringe 150 mg IM .[id number] RF: 0 Primary Care Provider: Argentina Guallpa Referrals: Argentina Guallpa MD [Primary Care Provider] - Disposition Disposition: Home, Self Care Discharge Date/Time: 06/25/21 22:52
--- NOTE | 2021-06-25 17:20 | CT_ITS ---
STUDY: CT ABDOMEN AND PELVIS WITH CONTRAST REASON FOR EXAM: Female, 26 years old. Abdominal pain RADIATION DOSAGE (If Supplied By Facility): CTDIvol = ( 11.20 ) mGy, DLP = ( 444.78 ) mGycm TECHNIQUE: Transaxial images were obtained from the dome of the diaphragm to the symphysis pubis without oral contrast. IV 100mL Isovue-370 was administered. Sagittal and coronal images were reconstructed. Individualized dose optimization techniques were used for this CT. COMPARISON: 12/16/2014. FINDINGS: The visualized lung bases are unremarkable. The visualized portions of the heart are within normal limits. Normal liver. Normal gallbladder and extrahepatic biliary system. Normal spleen. Normal pancreas. Normal bilateral adrenal glands. Small fatty umbilical hernia. Normal left kidney. Normal visualized stomach. Mild ileus of the small intestine. Normal colon. The appendix is visualized and appears normal. Normal abdominal aorta. Normal inferior vena cava. Normal retroperitoneum. Normal urinary bladder. Moderate pelvic fluid. Questionable myometrial edema. Correlate with pelvic ultrasound if needed. Normal abdominal wall. Normal osseous structures. CT/Abdomen/Pelvis W IV Cont ONLY IMPRESSION: Small bowel ileus. No sign of bowel obstruction. Moderate pelvic fluid. Questionable myometrial edema. Correlate with pelvic ultrasound if needed. Small fatty umbilical hernia. Electronically Signed: Juventino Geiger DO at 19:56 EDT Tel [phone], Service support ,
[2021-06-25 17:31] LABS: Absolute Lymphocyte Count 1.57 X10^3/uL (0.83-4.51); Absolute Neutrophil Count 3.1 X10^3/uL (2.0-7.7); Basophil# 0.02 X10^3/uL; Basophil% 0.4 % (0-1); Eosinophil# 0.14 X10^3/uL; Eosinophils% 2.6 % (0-5); Hematocrit 40.3 % (37-47); Hemoglobin 13.6 g/dL (12.0-15.0); Lymphocyte # 1.57 X10^3/ul (0.83-4.51); Lymphocyte % 28.8 % (19-41); Mean Corp Hgb Conc 33.7 g/dL (32-36); Mean Corpuscular Hgb 31.3 pg (27.0-32.0); Mean Corpuscular Volume 92.6 fL (81-99); Mean Platelet Vol. 9.6 fl (6.2-12.0); Monocyte# 0.61 X10^3/uL; Monocyte% 11.2 % (0-10); NRBC Flagged by Analyzer 0 % (0-5); Neutrophil # 3.09 X10^3/uL (2.7-7.7); Neutrophil % 56.6 % (47-70); Platelet Count 189 K/mm3 (150-450); RBC Distribution Width SD 40.9 fl (35.1-43.9); Red Blood Count 4.35 M/mm3 (4.2-5.4); White Blood Count 5.5 K/mm3 (4.4-11.0)
[2021-06-25] MEDS: 0.9% Normal Saline 1,000 ML 1000 ML IV (17:36)
[2021-06-25] MEDS: Morphine 4 MG/ML Syringe IV (17:36)
[2021-06-25] MEDS: Ondansetron 4 MG/2 ML Vial IV (17:36)
[2021-06-25 17:46] LABS: Mucous, Urine 0 SEEN /hpf (<or=2+); Red Blood Cells-Urine 0 SEEN /hpf (0-5)
[2021-06-25 17:49] LABS: Color, Urine Yellow (Yellow); Glucose, Dipstick Normal (Normal); Ketone-Dipstick Negative (Negative); Leukocyte Esterase-Dipstick Negative /ul (Negative); Nitrite-Dipstick Negative (Negative); Occult Blood-Urine 10 /ul (Negative); Protein-Dipstick Negative (Negative); Specific Gravity, Urine 1.025 (1.002-1.030); Urine Bilirubin Dipstick Negative (Negative); Urine Clarity Clear (Clear); Urine Urobilinogen Normal (Normal)
[2021-06-25 17:52] LABS: Internal QC Validated? YES +Cl - CLEAR BKGD; Pregnancy, Urine Negative Negative
[2021-06-25 17:56] LABS: AST(SGOT) 15 U/L (15-37); Alanine Aminotransfer ALT/SGPT 27 U/L (13-56); Albumin, Serum 3.7 g/dL (3.2-5.0); Alkaline Phosphatase 44 U/L (45-117); Anion Gap 4 (5-15); BUN 14 mg/dL (7-18); BUN/Creat Ratio 17.4 RATIO (10-20); Calcium,Total 9.2 mg/dL (8.5-10.1); Chloride 110 mmol/L (98-107); Creatinine, Serum 0.81 mg/dL (0.55-1.02); EST Glomerular Filtration Rate 92 mL/min (>60); Est Glom Filt Rate - Afr Amer 111 mL/min (>60); Estimated Creatinine Clearance 91.68 ml/min; Globulin 3.6 g/dL (2.2-4.2); Glucose 98 mg/dL (74-106); Lipase 60 U/L (73-393); Potassium 3.8 mmol/L (3.5-5.1); Protein, Total 7.3 g/dL (6.4-8.2); Sodium Level 141 mmol/L (136-145)
[2021-06-25 18:10] LABS: Bacteria 2+ /hpf (None Seen); Squamous Epithelial Cells - UA 5-10 SEEN /hpf (5-10); White Blood Cells 0-5 SEEN /hpf (0-5)
[2021-06-25 20:04] VITALS: BP 121/86; PULSE 75; RESP 18; O2SAT 100
--- NOTE | 2021-06-25 20:12 | US_ITS ---
STUDY: ULTRASOUND TRANSVAGINAL CLINICAL: Female, 26 years old. Pelvic pain TECHNIQUE: Transvaginal COMPARISON: None. FINDINGS: Normal uterine size measuring 6.6 x 4.1 x 3.1 cm in maximal craniocaudal dimension. There is a possible arcuate morphology of the uterus. There are no myometrial masses. Normal endometrial thickness measuring 6 mm. There is mild fluid in the lower endometrial cavity. Mild fluid in the cervical canal. Normal right ovary, measuring 3.0 x 2.1 x 2.0 cm. There are multiple follicles without a dominant cyst. Normal left ovary, measuring 2.6 x 2.2 x 1.4 cm. There is a 1 cm cyst. There is moderate free fluid in the pelvis. US/Transvaginal Non- IMPRESSION: Possible arcuate uterus. There is fluid in the lower endometrial cavity and cervical canal. Small left ovarian cyst. Moderate pelvic fluid. Electronically Signed: Juventino Geiger DO at 22:15 EDT Tel [phone], Service support ,
[2021-06-25 22:00] VITALS: BP 118/71; PULSE 71; RESP 18; O2SAT 99
[2021-06-25] MEDS: Metoclopramide 10 MG/2 ML Vial IV (22:32)
[2021-06-25] MEDS: DiphenhydrAMINE 50 MG/ML Syringe 25 MG IV (22:32)
== END 2021-06-25 22:52 | disposition home or self-care (01) ==
PROVIDERS: Emergency Provider Student in an Organized Health Care Education/Training Program; PCP Family Medicine
DX: N83.209 Unspecified ovarian cyst, unspecified side (principal); R10.9 Unspecified abdominal pain; G43.909 Migraine, unspecified, not intractable, without status migrainosus; F17.210 Nicotine dependence, cigarettes, uncomplicated
CPT/HCPCS: 74177; 76830; 80053; 81001; 81025; 83690; 85025; 93976; 96361; 96374; 96375; 99283; J7030; Q9967; A4216; J2405

== ENCOUNTER 2023-05-03 09:16 | Emergency (ER) | payer OTHER, SELFPAY ==
[2023-05-03 09:17] VITALS: BP 147/90; PULSE 84; RESP 16; TEMP 36.4; O2SAT 99; BMI 25.4
--- NOTE | 2023-05-03 09:44 | CT_ITS ---
EXAM: CT ABDOMEN AND PELVIS WITH INTRAVENOUS CONTRAST CLINICAL INDICATION: Right lower quadrant pain, wait for test TECHNIQUE: Helically acquired images were obtained of the abdomen and pelvis with intravenous contrast. This CT exam was performed using one or more of the following dose reduction techniques: automated exposure control, adjustment of the mA and/or kV according to patient size, and/or use of iterative reconstruction technique. CONTRAST: IV 100mL Isovue-300 COMPARISON: CT Abdomen Pelvis dated 06/25/2021 FINDINGS: LOWER THORAX: Normal. Lung bases are clear. No cardiomegaly. No pericardial effusion. ABDOMEN: LIVER: Normal. Homogeneous. No focal mass. PANCREAS: Normal. No focal cystic or solid mass. SPLEEN: Normal. Normal size without focal cystic or solid mass. ADRENALS: Normal. No nodules. KIDNEYS AND URETERS: Normal. Normal renal size and position. No hydronephrosis. STOMACH AND BOWEL: Normal. No bowel distention. No focal inflammatory change. PELVIS: APPENDIX: Appendix is visualized and normal in appearance. BLADDER: Normal. REPRODUCTIVE: Unremarkable as visualized. No mass. ABDOMEN and PELVIS: INTRAPERITONEAL SPACE: Normal. No ascites or other fluid collection. No free air. BONES/JOINTS: No suspicious lytic or blastic abnormality. SOFT TISSUES: Small fat-containing umbilical hernia is present. VASCULATURE: Normal. Abdominal aorta is non-dilated. LYMPH NODES: Normal. No enlarged lymph nodes. CT/Abdomen/Pelvis W IV Cont ONLY IMPRESSION: 1. No acute abdominal or pelvic abnormality. 2. Normal appendix. Electronically Signed: John Paul Reynoso MD at 11:40 EDT ,
[2023-05-03 10:06] LABS: Absolute Lymphocyte Count 0.76 X10^3/uL (0.83-4.51); Absolute Neutrophil Count 7.4 X10^3/uL (2.0-7.7); Basophil# 0.02 X10^3/uL; Basophil% 0.2 % (0-1); Hemoglobin 13.5 g/dL (12.0-15.0); Lymphocyte # 0.76 X10^3/ul (0.83-4.51); Lymphocyte % 8.9 % (19-41); Mean Corp Hgb Conc 32.9 g/dL (32-36); Mean Corpuscular Hgb 29.9 pg (27.0-32.0); Mean Corpuscular Volume 90.9 fL (81-99); Mean Platelet Vol. 9.2 fl (6.2-12.0); Monocyte# 0.37 X10^3/uL; Monocyte% 4.3 % (0-10); NRBC Flagged by Analyzer 0 % (0-5); Neutrophil # 7.37 X10^3/uL (2.7-7.7); Neutrophil % 86.2 % (47-70); Platelet Count 253 K/mm3 (150-450); RBC Distribution Width CV 12.4 % (11.6-14.6); RBC Distribution Width SD 41.3 fl (35.1-43.9); Red Blood Count 4.51 M/mm3 (4.2-5.4); White Blood Count 8.6 K/mm3 (4.4-11.0)
--- NOTE | 2023-05-03 10:10 | ED.RN ---
ABD PAIN AROUND UMBILICUS ACROSS TO RT
[2023-05-03 10:23] LABS: Bacteria 0 SEEN /hpf (None Seen); Mucous, Urine 0 SEEN /hpf (<or=2+); Red Blood Cells-Urine 0 SEEN /hpf (0-5); White Blood Cells 0 SEEN /hpf (0-5)
[2023-05-03 10:28] LABS: Color, Urine Yellow (Yellow); Glucose, Dipstick 50 mg/dl (Normal); Ketone-Dipstick 15 mg/dl (Negative); Leukocyte Esterase-Dipstick Negative /ul (Negative); Nitrite-Dipstick Negative (Negative); Occult Blood-Urine Negative /ul (Negative); Protein-Dipstick 30 mg/dl (Negative); Specific Gravity, Urine 1.025 (1.002-1.030); Urine Bilirubin Dipstick Negative (Negative); Urine Clarity Clear (Clear); Urine Urobilinogen Normal (Normal)
[2023-05-03 10:30] LABS: Internal QC Validated? YES +Cl - CLEAR BKGD; Pregnancy, Serum, hCG Quali. NEGATIVE Negative
[2023-05-03 10:35] LABS: Squamous Epithelial Cells - UA 0-5 SEEN /hpf (5-10)
--- NOTE | 2023-05-03 11:42 | EX.ED.DYSGE1 ---
HPI History of Present Illness Chief Complaint: Abd Pain Detail of Chief Complaint: Right lower quadrant abdominal pain with nausea and dry heaves Informant: patient Onset/Context/Timing Onset: Today Context: Sudden Onset Timing: Continuous Quality: Pain Location: Proximity of [place]Bur[place]'s point Current Severity: Mild Maximum Severity: Moderate Worsened by: Movement, walking, car ride Relieved by: Nothing Associated Symptoms Associated Symptoms: Per HPI narrative Narrative Narrative: Patient is a 28-year-old sexually active woman who is on control pills; however, she has not taken her dose consistently the same time and has missed doses this past month. She denies fever, chills night sweats. She denies headache, visual, ocular auditory symptoms. She denies upper respiratory symptoms. She does report nausea and dry heaves. She denies dysuria, frequency, urgency or hematuria. She denies history ovarian cysts, endometriosis or STI. There is no history of trauma. Prior similar symptoms: Yes (Was not appendicitis) Recent Illness/Hospitalization: No PFSH PFS Medical History (Updated 05/03/23 @ 12:[address] Efren Baron MD) Denies any past medical history Medical History no medical history no medical history Home Medications medroxyprogesterone 150 mg/mL intramuscular syringe 150 mg IM .[id number] Control 09/19/19 [History Last Taken 08/24/19 150 mg] hydrocodone-acetaminophen 5-325mg 5mg-325mg 1 tab PO Q6H PRN PRN Pain 2 days #8 TABLETS 05/03/23 [Rx Last Taken Unknown] Allergy/AdvReac Type Severity Reaction Status Date / Time kiwi Allergy Swelling Verified 05/03/23 09:17 Penicillins Allergy Rash Verified 05/03/23 09:17 Sulfa (Sulfonamide Allergy Rash Verified 05/03/23 09:17 Antibiotics) Surgical History History of placement of ear tubes Social History Smoking Status: Current every day smoker tobacco type: cigarettes substance use type: does not use ROS ROS ED Constitutional Constitutional ED: Denies chills, fever(s), subjective or sweats Eyes Eyes: Denies blurry vision, change in vision or diplopia ENT ENT ED: Denies ear pain, rhinorrhea or sore throat Cardiovascular Cardiovascular: Denies chest pain or palpitations Respiratory/Chest Respiratory/Chest: Denies cough, dyspnea or dyspnea on exertion Gastrointestinal Gastrointestinal: Reports abdominal pain, nausea and vomiting; Denies constipation, diarrhea or melena Genitourinary Genitourinary ED: Denies dysuria, hematuria or urinary frequency Musculoskeletal Musculoskeletal: Denies arthralgias or myalgias Integumentary Denies rash Neurologic Neurologic: Denies headache(s) or paresthesias Psychiatric Psychiatric: Denies anxiety Endocrine Endocrinology: Denies cold intolerance or heat intolerance Hematologic/Lymphatic Hematologic/Lymphatic: Reports systems reviewed and no addt'l complaints, except as documented EXAM Physical Exam Const Vital Signs: 05/03/23 09:17 Temperature 97.6 F L Temperature Source Temporal Pulse Rate 84 Respiratory Rate 16 Blood Pressure 147/90 H Blood Pressure Mean 109 Pulse Ox 99 Oxygen Delivery Method Room Air Positive well nourished and well developed Constitutional Narrative: Patient does not appear well. General Appearance ED: well developed; Negative for cyanotic, diaphoretic or pallor HEENT Reports moist mucous membranes HEENT Narrative: Head is atraumatic and normocephalic. Ears are normal. Nares are patent. Posterior pharynx is normal. Eyes PERRL and EOMs intact bilaterally General Eye ED: Negative for pale conjunctiva or scleral icterus Neck no lymphadenopathy, supple and no JVD Chest Wall inspection of chest normal and palpation of chest normal Resp normal respiratory effort and clear to auscultation bilaterally Cardio regular rate, regular rhythm, S1 normal heart sound, S2 normal heart sound and no murmurs GI normal to inspection, nondistended, normoactive bowel sounds, non-distended and no masses; Negative for non-tender or hepatosplenomegaly Palpation: soft, tender McBurney's point and guarding RLQ; Negative for splenomegaly, mass or rebound tenderness present Narrative: There is no CVA tenderness. Back/Spine no CVA tenderness Extremity normal to inspection General Extremety ED: Negative for edema or tenderness General Extremity: Negative for edema Neuro oriented x3, CN's II-XII intact bilaterally and no sensory deficits noted Sensorium / Orientation: alert Psych mental status grossly normal Skin no rashes or lesions noted, no wounds and skin turgor normal General Skin Exam: Negative for jaundice or pallor MDM MDM MDM Narrative Medical decision making narrative: PainPatient does not look well. With history of right lower quadrant Db pain, nausea vomiting discomfort with and significant tenderness to McBurney's point need to evaluate for appendicitis. CBC was obtained assess white count differential. test was obtained as well as UA. CAT scan abdomen was ordered since test is negative and urine is negative other than this was gravity 1.025. Differential diagnosis would be appendicitis, mesenteric adenitis, ovarian cyst, abdominal pain of unknown etiology. Lab Data Labs: Laboratory Results - last 24 hr 05/03/23 05/03/23 09:55 10:15 WBC 8.6 RBC 4.51 Hgb 13.5 Hct 41.0 MCV 90.9 MCH 29.9 MCHC 32.9 RDW Std Deviation 41.3 RDW Coeff of Leah 12.4 Plt Count 253 MPV 9.2 Immature Gran % (Auto) 0.400 Neut % (Auto) 86.2 H Lymph % (Auto) 8.9 L [place] % (Auto) 4.3 Eos % (Auto) 0.0 Baso % (Auto) 0.2 Absolute Neuts (auto) 7.4 Absolute Lymphs (auto) 0.76 L Nucleated RBC % 0 Serum , Qual NEGATIVE Urine Color Yellow Urine Clarity Clear Urine pH 5.0 Ur Specific [place] 1.025 Urine Protein 30 H Urine Glucose (UA) 50 H Urine Ketones 15 H Urine Occult Blood Negative Urine Nitrite Negative Urine Bilirubin Negative Urine Urobilinogen Normal Ur Leukocyte Esterase Negative Urine RBC 0 SEEN Urine WBC 0 SEEN Ur Squamous Epith Cells 0-5 SEEN Urine Bacteria 0 SEEN Urine Mucus 0 SEEN Radiography Diagnostic Testing: Clinical Impression(s) from Imaging Studies Abdomen/Pelvis CT 05/03/23 09:44 IMPRESSION: 1. No acute abdominal or pelvic abnormality. 2. Normal appendix. Electronically Signed: John Paul Reynoso MD at 11:40 EDT , Treatment and Re-Evaluation :: Patient and mother were informed the cause of her pain is unknown and that her work-up is normal. Patient was discharged home with pain medicine. Discharge Plan Triage Chief Complaint: Abd Pain ED Provider: Efren Baron Dx/Rx/DC Orders Clinical Impression: Right lower quadrant abdominal pain, Nausea & vomiting Instructions: ED Abdominal Pain Unkn Cause Fem Prescriptions: New hydrocodone-acetaminophen [hydrocodone-acetaminophen] 5-325 mg tablet 1 tab PO Q6H PRN PRN (Reason: Pain) 2 Days Qty: 8 0RF No Action medroxyprogesterone 150 MG/ML syringe 150 mg IM .[id number] Primary Care Provider: Argentina Guallpa Referrals: Argentina Guallpa MD [Primary Care Provider] - 1-2 Days if not improving Disposition Disposition: Home, Self Care
[2023-05-03 12:37] VITALS: BP 124/66; PULSE 79; RESP 15; O2SAT 98
== END 2023-05-03 12:37 | disposition home or self-care (01) ==
PROVIDERS: Emergency Provider Emergency Medicine; PCP Family Medicine; Visit Provider Emergency Medicine
DX: R10.31 Right lower quadrant pain (principal); R11.2 Nausea with vomiting, unspecified; F17.210 Nicotine dependence, cigarettes, uncomplicated
CPT/HCPCS: 74177; 81001; 84703; 85025; 99283; Q9967; A4216

== ENCOUNTER → 2023-06-22 | Outpatient (CLI) | payer OTHER, SELFPAY ==
[2023-06-22 17:41] LABS: Absolute Lymphocyte Count 2.76 X10^3/uL (0.83-4.51); Absolute Neutrophil Count 4.3 X10^3/uL (2.0-7.7); Basophil# 0.05 X10^3/uL; Basophil% 0.6 % (0-1); Eosinophil# 0.07 X10^3/uL; Eosinophils% 0.9 % (0-5); Hematocrit 38.8 % (37-47); Hemoglobin 12.5 g/dL (12.0-15.0); Lymphocyte # 2.76 X10^3/ul (0.83-4.51); Lymphocyte % 35.2 % (19-41); Mean Corp Hgb Conc 32.2 g/dL (32-36); Mean Corpuscular Hgb 29.6 pg (27.0-32.0); Mean Corpuscular Volume 91.9 fL (81-99); Mean Platelet Vol. 9.4 fl (6.2-12.0); Monocyte# 0.64 X10^3/uL; Monocyte% 8.2 % (0-10); NRBC Flagged by Analyzer 0 % (0-5); Neutrophil % 54.8 % (47-70); Platelet Count 277 K/mm3 (150-450); RBC Distribution Width CV 12.1 % (11.6-14.6); RBC Distribution Width SD 40.8 fl (35.1-43.9); Red Blood Count 4.22 M/mm3 (4.2-5.4); White Blood Count 7.8 K/mm3 (4.4-11.0)
[2023-06-22 18:19] LABS: Vitamin B12 392 pg/mL (211-911); Vitamin D,25 Hydroxy 36.4 ng/mL
[2023-06-22 18:27] LABS: AST(SGOT) 14 U/L (15-37); Alanine Aminotransfer ALT/SGPT 29 U/L (13-56); Albumin, Serum 3.4 g/dL (3.2-5.0); Alkaline Phosphatase 38 U/L (45-117); Anion Gap 3 (5-15); BUN 12 mg/dL (7-18); BUN/Creat Ratio 14.8 RATIO (10-20); Calcium,Total 8.8 mg/dL (8.5-10.1); Chloride 109 mmol/L (98-107); Creatinine, Serum 0.81 mg/dL (0.55-1.02); EST Glomerular Filtration Rate 90 mL/min (>60); Est Glom Filt Rate - Afr Amer 109 mL/min (>60); Ferritin 34 ng/mL (8-252); Globulin 3.5 g/dL (2.2-4.2); Glucose 96 mg/dL (74-106); Iron 83 ug/dL (50-170); Potassium 3.8 mmol/L (3.5-5.1); Protein, Total 6.9 g/dL (6.4-8.2); Sodium Level 138 mmol/L (136-145); T4 Free Direct 1.08 ng/dL (0.76-1.46)
== END | disposition home or self-care (01) ==
PROVIDERS: PCP Family Medicine; Referring Provider Nurse Practitioner Family; Visit Provider Nurse Practitioner Family
DX: R53.83 Other fatigue (principal)
CPT/HCPCS: 36415; 80053; 82306; 82607; 82728; 83540; 84439; 84443; 85025

== ENCOUNTER → 2023-07-20 | Outpatient (CLI) | payer OTHER, SELFPAY | END | disposition home or self-care (01) | PROVIDERS: PCP Family Medicine; Visit Provider Nurse Practitioner Family | DX: R40.0 Somnolence (principal); R06.83 Snoring | CPT/HCPCS: 95806 ==